=== PATIENT | female | born 1990 | race Caucasian/White ===

== ENCOUNTER 2018-06-11 20:30 | Emergency (ER) | payer OTHER ==
[2018-06-11] MEDS: DEXAMETHASONE 10 MG/ML 1 ML INJ IM (23:44)
[2018-06-11] MEDS: CYCLOBENZAPRINE 10 MG TAB PO (23:44)
[2018-06-11] MEDS: KETOROLAC 60 MG INJ IM (23:45)
== END 2018-06-12 01:05 | disposition home or self-care (01) ==
LOC: FTE 06-12 01:05
DX: M25.511 Pain in right shoulder (principal); J45.909 Unspecified asthma, uncomplicated; M62.838 Other muscle spasm
CPT/HCPCS: 73030; 73030-RT; 81025; 96372; 99284-25